=== PATIENT | female | born 1995 | race Caucasian/White ===

== ENCOUNTER 2022-11-30 17:46 | Emergency (ER) | payer BC ==
[~2022-11-30] VITALS: Ht 167.6 cm; Wt 52.2 kg
[2022-11-30] MEDS ORDERED: ONDANSETRON HCL/PF 4 MG/2 ML VIAL IVP ONE (18:30)
[2022-11-30] MEDS ORDERED: IV NS 0.9% 1,000 ML BAG IV ONE (18:30)
[2022-11-30] MEDS ORDERED: KETOROLAC TROMETHAMINE INJ 30 MG/ML VIAL IV ONE (18:30)
--- NOTE | 2022-11-30 18:35 | NUR ---
ESTABLISHED IV ACCESS 20G LEFT AC. BLOOD DRAWN AND SENT TO LAB.
[2022-11-30] MEDS ORDERED: ONDANSETRON HCL/PF 4 MG/2 ML VIAL ONE (18:38)
[2022-11-30] MEDS ORDERED: KETOROLAC TROMETHAMINE 15 MG/ML VIAL ONE (18:38)
[2022-11-30 18:42] LABS: BASOPHILS % (AUTO) 0.2 % (0.0-2.0); EOSINOPHILS % (AUTO) 0.5 % (0.0-6.0); HEMATOCRIT 42 % (33-45); HEMOGLOBIN 13.8 g/dL (11.5-14.8); LYMPHOCYTES # (AUTO) 1.6 K/uL (0.8-4.8); LYMPHOCYTES % (AUTO) 16.6 % (20.0-44.0); MEAN CORPUSCULAR HGB CONC 33 g/dl (31.0-36.0); MEAN CORPUSCULAR VOLUME 88 fL (82-100); MONOCYTES # (AUTO) 0.4 K/uL (0.1-1.30); MONOCYTES % (AUTO) 3.8 % (2.0-12.0); NEUTROPHILS # (AUTO) 7.4 K/uL (1.8-8.9); NEUTROPHILS % (AUTO) 78.9 % (43.0-81.0); PLATELET COUNT (AUTO) 244 K/uL (150-450); RED BLOOD CELL COUNT(AUTO) 4.79 MIL/uL (4.0-5.2); WHITE BLOOD COUNT (AUTO) 9.4 K/uL (4.3-11.0)
--- NOTE | 2022-11-30 18:53 | NUR ---
TOWING PILOT AT BEDSIDE
[2022-11-30 18:54] LABS: CALCIUM, SERUM 10.1 mg/dL (8.5-10.1); POTASSIUM 3.6 mmol/L (3.5-5.1)
[2022-11-30 19:00] LABS: ALBUMIN 5.6 g/dL (3.4-5.0); BILIRUBIN,DIRECT 0.2 mg/dL (0.0-0.2); BILIRUBIN,TOTAL 0.3 mg/dL (0.2-1.0); TOTAL PROTEIN, SERUM 9.2 g/dL (6.4-8.2)
--- NOTE | 2022-11-30 19:18 | NUR ---
URINE SENT TO LAB
[2022-11-30 20:25] LABS: BILIRUBIN,URINE NEGATIVE (NEGATIVE); COLOR,URINE YELLOW (YELLOW); LEUKOCYTE ESTERASE ,URINE NEGATIVE (NEGATIVE); NITRITE, URINE NEGATIVE (NEGATIVE); PROTEIN,URINE TRACE mg/dl (NEGATIVE); UGLUCOSE NEGATIVE (NEGATIVE); UROBILINOGEN,URINE 0.2 EU/dL (0.2)
--- NOTE | 2022-11-30 20:35 | NUR ---
Patient discharged to home in stable condition. Written and verbal after care instructions given. Patient verbalizes understanding of instruction. IV removed. Catheter intact and site benign. Pressure and 4x4 applied to site. No bleeding noted. ambulatory with a steady gait.
[2022-11-30 20:37] VITALS: BP 105/60
[2022-11-30 20:37] LABS: BACTERIA,URINE 1+ /HPF (None Seen); MUCUS,URINE Few /LPF (None Seen); RBC,URINE 21-50 /HPF (0-2); WBC,URINE 0-2 /HPF (0-3)
== END 2022-11-30 20:38 | disposition home or self-care (01) ==
LOC: ER 17:52
DX: N83.201 Unspecified ovarian cyst, right side (principal)
CPT/HCPCS: 99285; 96374; 76856; 96361; 96375; 85025; 80048; 87086; 83690; 80076; 84703; 81001; 36415; 84702; J2405; J7030; J1885

== ENCOUNTER 2024-03-12 12:00 | Emergency (ER) | payer BC ==
[~2024-03-12] VITALS: Ht 170.2 cm; Wt 49.4 kg
[2024-03-12] MEDS ORDERED: IBUPROFEN 600 MG TABLET ONE (12:43)
[2024-03-12] MEDS ORDERED: CYCLOBENZAPRINE 10 MG TABLET ONE (12:43)
[2024-03-12] MEDS: CYCLOBENZAPRINE 10 MG TABLET PO ONE (12:46)
[2024-03-12] MEDS: IBUPROFEN 600 MG TABLET PO ONE (12:47)
[2024-03-12 13:38] LABS: PREGNANCY TEST URINE QUAL NEGATIVE (NEGATIVE)
[2024-03-12] MEDS ORDERED: CYCL5TAB PO (14:11)
[2024-03-12 14:25] VITALS: BP 100/64; TEMP 98.7; O2SAT 100
== END 2024-03-12 14:26 | disposition home or self-care (01) ==
LOC: ER 12:13
DX: M54.50 Low back pain, unspecified (principal); E03.9 Hypothyroidism, unspecified; R10.2 Pelvic and perineal pain
CPT/HCPCS: 72110-TC; 84703-TC